=== PATIENT | female | born 2005 | race Caucasian/White ===

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

== ENCOUNTER 2024-03-02 11:49 | Inpatient (IN) | payer MEDICAID, OTHER ==
--- NOTE | 2024-03-02 12:22 | ED ---
Psych HPI - General Chief Complaint: Psychiatric Symptoms Stated Complaint: Mental Health Time Seen by Provider: 03/02/24 11:59 Source: patient, family, RN notes reviewed Mode of arrival: ambulatory Limitations: no limitations - History of Present Illness Initial Comments: This is a 18-year-old female who presents to the emergency department for psychiatric evaluation. Patient has problems with recurrent auditory and visual hallucinations. Her mom states that when she hallucinates she has 6 bad friends and 2 good friends. The bad friends tend to take over and tell her to do bad things and cause destructive behavior. The one bad friend she continues to mention is named "Donna". Usually, her family is able to get this under control at home, however over the last 2 days this has been escalating and things seem to be getting much worse. Her mom states that they are telling her to destroy things all over the house. They are concerned that they may start to tell her to harm herself or others, which has happened in the past. She is on multiple psychiatric medications through [facility] and has been hospitalized in the past at [facility]. She does also mention concerned about what the family believes is eczema. She has scattered erythematous lesions on her extremities and trunk. Describes these as very itchy. She tried using her mother's triamcinolone cream without much relief. - Related Data Home Medications Medication Instructions Recorded Confirmed Melatonin 3 mg PO HS PRN 02/16/19 03/02/24 FLUoxetine HCL [PROzac] 10 mg PO DAILY 01/23/22 03/02/24 cloNIDine HCL 0.2 mg PO HS 01/23/22 03/02/24 diphenhydrAMINE HCL [Benadryl] 25 mg PO DAILY PRN 01/23/22 03/02/24 hydrOXYzine pamoate [Vistaril] 25 mg PO BID 01/23/22 03/02/24 Multivitamin [Multivitamins Adult 1 tab PO DAILY 03/02/24 03/02/24 Gummies] OLANZapine [ZyPREXA] 5 mg PO HS 03/02/24 03/02/24 risperiDONE [RisperDAL] 2 mg PO BID 03/02/24 03/02/24 Previous Rx's Medication Instructions Recorded EPINEPHrine [Epipen 2-Km] 0.3 mg IM ONCE PRN #1 pack 02/17/19 Allergies Allergy/AdvReac Type Severity Reaction Status Date / Time dog dander Allergy Unknown-Allergy Verified 03/02/24 18:13 testing feathers Allergy Unknown-Allergy Verified 03/02/24 18:13 testing permethrin [From Nix] Allergy Rash/Hives Verified 03/02/24 18:12 red (food color) Allergy Nausea & Verified 03/02/24 18:12 Vomiting shrimp Allergy Unknown-Allergy Verified 03/02/24 18:13 testing tree nut Allergy Anaphylaxis Verified 03/02/24 18:12 hamster Allergy Unknown-Allergy Uncoded 03/02/24 18:13 testing Review of Systems ROS Statement: Those systems with pertinent positive or pertinent negative responses have been documented in the HPI. ROS Other: All systems not noted in ROS Statement are negative. Past Medical History Past Medical History: Asthma Additional Past Medical History / Comment(s): autisum, odd History of Any Multi-Drug Resistant Organisms: None Reported Past Surgical History: No Surgical Hx Reported Past Psychological History: ADD/ADHD, Anxiety Smoking Status: Never smoker Past Alcohol Use History: None Reported Past Drug Use History: None Reported General Exam Limitations: no limitations General appearance: alert, in no apparent distress Head exam: Present: atraumatic, normocephalic, normal inspection Respiratory exam: Present: normal lung sounds bilaterally. Absent: respiratory distress, wheezes, rales, rhonchi, stridor Cardiovascular Exam: Present: regular rate, normal rhythm, normal heart sounds. Absent: systolic murmur, diastolic murmur, rubs, gallop, clicks Neurological exam: Present: alert, oriented X3, CN II-XII intact Psychiatric exam: Present: normal affect, normal mood. Absent: homicidal ideation, suicidal ideation Expanded Focused psych exam: Present: delusional Skin exam: Present: other (Scattered erythematous scaly lesions on the bilateral upper and lower extremities and the back of her neck) Course Vital Signs 03/02/24 11:55 Temperature 98.1 F Pulse Rate 63 Respiratory 18 Rate Blood Pressure 121/75 O2 Sat by Pulse 98 Oximetry Medical Decision Making - Medical Decision Making This is a 18 year old female who presents to the emergency department for psychiatric evaluation. Was pt. sent in by a medical professional or institution? @ -No Did you speak to anyone other than the patient for history? @ -Her mother supplemented a lot of the history. Did you review nursing and triage notes? @ -Yes, and I agree, it is accurate with regards to the patient's symptoms. Were old charts reviewed? @ -No Differential Diagnosis? @ -Differential Mental Health: Depression, anxiety, bipolar, psychosis, schizophrenia, borderline personality, situational depression, adjustment disorder, behavioral disorder, brain tumor, malingering, substance abuse, encephalopathy, medication reaction, dementia, hypothyroidism, degenerative neurologic disorder, lupus.... This is not meant to be all-inclusive list EKG interpreted by me (3pts min.)? @ -Not obtained X-rays interpreted by me (1pt min.)? @ -Not obtained CT interpreted by me (1pt min.)? @ -Not obtained U/S interpreted by me (1pt. min.)? @ -Not obtained What testing was considered but not performed? (CT, X-rays, U/S, labs)? Why? @ -None What meds were considered but not given? Why? @ -None Did you discuss the management of the patient with other professionals? @ -Yes, Ana with EPS, who advised that she does meet criteria for inpatient psychiatric hospitalization due to worsening psychosis and will sign herself in voluntarily. Did you reconcile home meds? @ -No Was smoking cessation discussed for >3mins.? @ -No Was critical care preformed (if so, how long)? @ -No Were there social determinants of health that impacted care today? How? (Homelessness, low income, unemployed, alcoholism, drug addiction, transportation, low edu. Level, literacy, decrease access to med. care, [facility], rehab)? @ -No Was there de-escalation of care discussed even if they declined? (Discuss DNR or withdrawal of care, Hospice)? @ -No What co-morbidities impacted this encounter? (DM, HTN, Smoking, COPD, CAD, Cancer, CVA, Hep., AIDS, mental health diagnosis, sleep apnea, morbid obesity)? @ -Autism, ODD Was patient admitted / discharged? @ -Admitted. BAT was 0.0 and she was cleared for EPS evaluation. Urinalysis negative for signs of infection. Urine drug screen negative. She does have multiple scattered erythematous scaling lesions on her bilateral upper and lower extremities as well as her trunk. Some of these look eczematous and others almost appear similar to ringworm based on the darker border with [facility]. Lotrisone cream was applied to these in the meantime, which did effectively treat the itching. EPS evaluated the patient and advised that she does meet criteria for inpatient psychiatric hospitalization due to worsening psychosis. Patient signed herself in voluntarily and will be admitted to [facility] for further care. Case discussed with ED attending Dr. Kim. Undiagnosed new problem with uncertain prognosis? @ -None Drug Therapy requiring intensive monitoring for toxicity (Heparin, Nitro, Insulin, Cardizem)? @ -None Were any procedures done? @ -None Diagnosis/symptom? @ -Acute psychosis Acute, or Chronic, or Acute on Chronic? @ -Acute Uncomplicated (without systemic symptoms) or Complicated (systemic symptoms)? @ -Complicated Side effects of treatment? @ -None Exacerbation, Progression, or Severe Exacerbation] @ -Not applicable Poses a threat to life or bodily function? @ -Yes, can lead to potentially life threatening behavior - Lab Data Lab Results 03/02/24 03/02/24 03/02/24 Range/Units 12:36 12:36 18:07 Urine Color Colorless Urine Appearance Clear (Clear) Urine pH 6.5 (5.0-8.0) Ur Specific Bandy 1.001 (1.001-1.035) Urine Protein Negative (Negative) Urine Glucose (UA) Negative (Negative) Urine Ketones Negative (Negative) Urine Blood Negative (Negative) Urine Nitrite Negative (Negative) Urine Bilirubin Negative (Negative) Urine Urobilinogen <2.0 (<2.0) mg/dL Ur Leukocyte Esterase Negative (Negative) Urine HCG, Qual Not Detected (Not Detectd) Urine Opiates Screen Not Detected (NotDetected) Ur Oxycodone Screen Not Detected (NotDetected) Urine Methadone Screen Not Detected (NotDetected) Ur Barbiturates Screen Not Detected (NotDetected) U Tricyclic Antidepress Not Detected (NotDetected) Ur Phencyclidine Scrn Not Detected (NotDetected) Ur Amphetamines Screen Not Detected (NotDetected) U Methamphetamines Scrn Not Detected (NotDetected) U Benzodiazepines Scrn Not Detected (NotDetected) Urine Cocaine Screen Not Detected (NotDetected) U Marijuana (THC) Screen Not Detected (NotDetected) SARS-CoV-2 (PCR) Not Detected (Not Detectd) Disposition Clinical Impression: Acute psychosis Disposition: TRANSFER TO PSYCH HOSP/UNIT Referrals: Abiodun Solitario MD [Primary Care Provider] - 1-2 days
[2024-03-02] MEDS: CLOTRIMAZOLE/BETAMETH 1-0.05% CREAM 45 GM TUBE TOPICAL STA (12:36)
[2024-03-02 13:05] LABS: Appearance,Urine Clear (Clear); Bilirubin,Urine Negative (Negative); Blood,Urine Negative (Negative); Color,Urine Colorless; Glucose,Urine (UA) Negative (Negative); Ketones,Urine Negative (Negative); Leukocyte Esterase,Urine Negative (Negative); Nitrite,Urine Negative (Negative); PH, Urine 6.5 (5.0-8.0); Protein,Urine Negative (Negative); Specific Gravity,Urine 1.001 (1.001-1.035); Urobilinogen,Urine <2.0 mg/dL (<2.0)
[2024-03-02 13:32] LABS: Amphetamine Screen,Urine Not Detected (NotDetected); Barbiturate Screen,Urine Not Detected (NotDetected); Benzodiazepines Screen,Urine Not Detected (NotDetected); Cocaine Screen,Urine Not Detected (NotDetected); Methadone Screen, Urine Not Detected (NotDetected); Opiate Screen,Urine Not Detected (NotDetected); Oxycodone Screen, Urine Not Detected (NotDetected); Phencyclidine Screen,Urine Not Detected (NotDetected); Tricyclic Antidepressant,Urine Not Detected (NotDetected); Urn Cannabinoid Scrn Not Detected (NotDetected)
[2024-03-02] MEDS ORDERED: IBUPROFEN 600 MG TAB PO PRN (22:02)
[2024-03-02] MEDS ORDERED: ACETAMINOPHEN TAB 325 MG TAB PO PRN (22:02)
[2024-03-02] MEDS ORDERED: MAG HYDROX/AL HYDROX/SIMETH 355 ML BOTTLE PO PRN (22:02)
[2024-03-02] MEDS ORDERED: MAGNESIUM HYDROXIDE 2,400 MG/30 ML CUP PO PRN (22:02)
[2024-03-02] MEDS ORDERED: haloperidoL 5 MG TAB PO PRN (22:06)
[2024-03-02] MEDS ORDERED: LORazepam 1 MG TAB PO PRN (22:06)
[2024-03-02] MEDS ORDERED: HALOPERIDOL LACTATE 5 MG/ML 1 ML VIAL IM PRN (22:06)
[2024-03-02] MEDS ORDERED: LORazepam 2 MG/ML INJ IM PRN (22:06)
[2024-03-03] MEDS: hydrOXYzine pamoate 25 MG CAP PO SCH (00:02)
[2024-03-03] MEDS: MELATONIN 3 MG TABLET PO PRN (00:02)
[2024-03-03] MEDS: cloNIDine HCL 0.2 MG TAB PO SCH (00:02)
[2024-03-03] MEDS: OLANZapine 5 MG TAB PO SCH (00:02)
[2024-03-03] MEDS: FLUoxetine HCL 10 MG CAP PO SCH (08:34)
[2024-03-03 10:31] LABS: Basophils % (A) 1 %; Eosinophils # (A) 0.1 k/uL (0-0.7); Eosinophils % (A) 1 %; HCT 42.4 % (34.0-46.0); HGB 13.4 gm/dL (11.4-16.0); Lymphocytes # (A) 1.7 k/uL (1.0-4.8); Lymphocytes % (A) 33 %; MCH 27.8 pg (25.0-35.0); MCHC 31.5 g/dL (31.0-37.0); MCV 88.3 fL (80.0-100.0); Mean Platelet Volume 7.2; Monocytes # (A) 0.3 k/uL (0-1.0); Monocytes % (A) 6 %; Neutrophils # (A) 2.9 k/uL (1.3-7.7); Neutrophils % (A) 58 %; Platelet Count 322 k/uL (150-450); RDW 14.9 % (11.5-15.5)
[2024-03-03 10:51] LABS: ALT 21 U/L (4-34); AST 26 U/L (14-36); African American GFR (CKD) >90 (>60 ml/min/1.73 sqM); Albumin 4.8 g/dL (3.5-5.0); Alkaline Phosphatase 107 U/L (38-126); Anion Gap 7 mmol/L; Bilirubin, Delta 0.1 mg/dL (0.0-0.2); Bilirubin,Unconjugated 0.5 mg/dL (0.0-1.1); Blood Urea Nitrogen 9 mg/dL (7-17); Calcium 10.1 mg/dL (8.4-10.2); Carbon Dioxide 21 mmol/L (22-30); Chloride 111 mmol/L (98-107); Glucose 85 mg/dL (74-99); Non-African American GFR(CKD) >90 (>60 ml/min/1.73 sqM); Potassium 4.2 mmol/L (3.5-5.1); Sodium 139 mmol/L (137-145); Total Bilirubin 0.6 mg/dL (0.2-1.3); Total Protein 7.8 g/dL (6.3-8.2)
[2024-03-03] MEDS ORDERED: hydrOXYzine pamoate 25 MG CAP PO PRN (14:29)
[2024-03-03] MEDS: SERTRALINE 50 MG TAB PO SCH (14:30)
--- NOTE | 2024-03-03 14:31 | P.HP ---
Psychiatric H&P - . H&P Date: 03/03/24 History & Physical: Allergies Allergy/AdvReac Type Severity Reaction Status Date / Time dog dander Allergy Unknown-Allergy Verified 03/03/24 00:26 testing feathers Allergy Unknown-Allergy Verified 03/03/24 00:26 testing permethrin from [facility]ix Allergy Rash/Hives Verified 03/03/24 00:26 red (food color) Allergy Nausea & Verified 03/03/24 00:26 Vomiting shrimp Allergy Unknown-Allergy Verified 03/03/24 00:26 testing tree nut Allergy Anaphylaxis Verified 03/03/24 00:26 hamster Allergy Unknown-Allergy Uncoded 03/03/24 00:26 testing Vital Signs Temp 98.2 F 03/03/24 05:58 Pulse 56 L 03/03/24 05:58 Resp 15 03/03/24 05:58 BP 116/70 03/03/24 05:58 Pulse Ox 97 03/03/24 05:58 FiO2 Intake & Output 03/02/24 03/03/24 03/03/24 18:59 06:59 18:59 Weight 74.843 kg 74.096 kg Laboratory Last Values Urine Color Colorless 03/02/24 12:36 Urine Appearance Clear (Clear) 03/02/24 12:36 Urine pH 6.5 (5.0-8.0) 03/02/24 12:36 Ur Specific [place] 1.001 (1.001-1.035) 03/02/24 12:36 Urine Protein Negative (Negative) 03/02/24 12:36 Urine Glucose (UA) Negative (Negative) 03/02/24 12:36 Urine Ketones Negative (Negative) 03/02/24 12:36 Urine Blood Negative (Negative) 03/02/24 12:36 Urine Nitrite Negative (Negative) 03/02/24 12:36 Urine Bilirubin Negative (Negative) 03/02/24 12:36 Urine Urobilinogen <2.0 mg/dL (<2.0) 03/02/24 12:36 Ur Leukocyte Esterase Negative (Negative) 03/02/24 12:36 Urine HCG, Qual Not Detected (Not Detectd) 03/02/24 12:36 Urine Opiates Screen Not Detected (NotDetected) 03/02/24 12:36 Ur Oxycodone Screen Not Detected (NotDetected) 03/02/24 12:36 Urine Methadone Screen Not Detected (NotDetected) 03/02/24 12:36 Ur Barbiturates Screen Not Detected (NotDetected) 03/02/24 12:36 U Tricyclic Antidepress Not Detected (NotDetected) 03/02/24 12:36 Ur Phencyclidine Scrn Not Detected (NotDetected) 03/02/24 12:36 Ur Amphetamines Screen Not Detected (NotDetected) 03/02/24 12:36 U Methamphetamines Scrn Not Detected (NotDetected) 03/02/24 12:36 U Benzodiazepines Scrn Not Detected (NotDetected) 03/02/24 12:36 Urine Cocaine Screen Not Detected (NotDetected) 03/02/24 12:36 U Marijuana (THC) Screen Not Detected (NotDetected) 03/02/24 12:36 SARS-CoV-2 (PCR) Not Detected (Not Detectd) 03/02/24 18:07 03/03/24 08:51 IDENTIFYING DATA: Patient is a 18 year old female. Currently lives with her mom who is her guardian, she lives in a trailer, she collects SSI. HPI: Patient presented to the hospital on 03/02. As per EPS note, "Patient presented to ED with mother for evaluation related to "seeing people and 'marin' telling her to hurt herself". Patient assessed from [id number]. Patient evaluated with mother at the bedside, with permisson to speak infront of mother. Patient states that she has 6 bad and 2 good imaginary friends and "marin" started telling her to hurt herself. Patient states that each of her friends have names and they are not always there at the same time. Patient has bruise to R arm where she hit herself. Patient states she has history of self harm including biting and hitting herself and occasionally biting herself. Patient and mother deny recent history of patient harming others or aggression towards others. Patients mother stated that appox 4 years ago patient began self harming after being told to by the imaginary friend and it escalated to harming others including hitting others and throwing objects. Patients mother expressed concern that without treatment patient will escalate to begin harming herself worse or harming others. Patient denies suicidal or homicidal ideations. Patient denies paranoia, and no delusional statements noted on assessment. Patient verbalizes taking medications at home as prescribed. Patient verbalizes recent appetite decrease with eating 0-1 meal a day and some snacks, difficulty sleeping approx 2 hours per night, and difficulty maintaining hygiene. Patient states these recent changes started 3 days ago. Patient and mother state at baseline patient does not harm herself and has no difficulty with her ADLs. Patient denies substance use, UDS-. Patient denies alcohol use, BAT 0. Patient denies legal hx. Patient and mother deny any guns or weapons in the home, stating "even the kitchen utensils are locked away". Upon today's assessment, patient was seen and agreeable to speak to information writer in the office today. She claims that she was having auditory hallucinations claiming the voices were telling her to harm herself, also states that she is seeing things having visual hallucinations of "imaginary people". Claims that she was also having flashbacks, states that she has been hitting herself as well. Claims that she has a long history of doing this however this has gotten worse. States that she has been feeling "more stressed out". When asked more about the stressors she listed off her grandmother being a stressor for her, states that her boyfriend also is going away to college, states that she is also dealing with other family issues. She states that her appetite has been poor, sleep has been poor about 2 to 3 hours a night, denying any paranoia at this time. States that she is compliant with her medications her mom helps her take it. She goes to [facility] for regular follow-up. Patient denies any suicidal or homicidal ideations intent or plan. At this time patient is continuing to admit to auditory or visual hallucinations. Patient denies any flight of ideas racing thoughts and increased in goal directed behavior. Patient admits to using no recreational drugs or cigarettes. PAST PSYCHIATRIC HISTORY: Patient states that she is open with [facility] sees FIRE PROTECTION SPECIALIST Kenyatta Contreras. Last hospitalization was 1 year ago at [facility]. . She is currently on Zyprexa, clonidine, Vistaril, Risperdal, Prozac . Patient denies any history of suicide attempts in the past. PMH:As per ER note ALLERGIES: as per EMR CHEMICAL DEPENDENCY HISTORY: as per HPI FAMILY PSYCHIATRIC/SUBSTANCE USE HISTORY: Claims that her brother has autism, her mom has some form of mental illness. States that she has a sister who apparently has schizophrenia. SOCIAL HISTORY: Patient was born and raised in [place] in [facility]. Claims that she currently lives in a trailer with her mom, claims that her mother is a guardian. She claims that she collects SSI. She graduated high school recently, denies any legal history. MENTAL STATUS EXAM: General Appearance: Patient appears to be wearing hospital gown, wearing glasses, stated age is alert, directable, and attempts to cooperate. Patient appears to have poor hygiene and grooming. Behavior: Patient is seated without any agitated behavior. Attempts to cooperate Speech: Patient's speech is fluent and nonpressured. [place] Mood/Affect: Patient reports their mood is depressed, affect is congruent and constricted. Suicidality/Homicidality: Patient denies having any homicidal ideation intent or plan. Denies any suicidal ideations intent or plan Perceptions: Patient denies any visual hallucinations and denies any auditory hallucinations Though content/process: There is no evidence of any delusional thought content and thought process is linear and goal-directed. [place], Memory and concentration: AOX3, grossly intact for the purposes of this session. Can spell "WORLD" backwards Judgment and insight: Poor, chronically limited STRENGTHS/WEAKNESSES: strength is that patient is resilient. Weakness is that patient has poor judgment and chronically limited insight INTELLECT: Below average IMPRESSIONS: Psychosis unspecified Intellectual disability mild PLAN: -Patient is admitted under voluntary status to MHU for stabilization of psychiatric symptoms and safety. Patient has signed adult voluntary form and m edication consent and is placed in patient's chart. -Medications : Will start patient on Zoloft 50 mg daily for mood/anxiety, Invega p.o. 3 mg twice daily for psychosis/mood stabilization, trazodone 50 mg nightly for sleep/mood, clonidine 0.2 mg nightly for impulsivity, vistaril 25 mg q6hr prn for anxiety. -Ativan and Haldol PRN for agitation/aggression -Patient was informed of the risks, benefits and side effects of the medication and patient verbally consented to taking the medications. -Internal Medicine consult to perform medical evaluation and physical. -NRT - not needed as patient does not smoke -SW on board for discharge planning. Encourage patient to participate in groups to work on coping skills. 03/03/24 14:23 03/03/24 14:30
[2024-03-03 15:37] LABS: Chol/HDL Ratio 4.67 Ratio; LDL Cholesterol,Calculated 145.9 mg/dL (0.0-131.0)
[2024-03-03] MEDS: traZODone HCL 50 MG TAB PO SCH (20:08)
[2024-03-03] MEDS: CLOTRIMAZOLE/BETAMETH 1-0.05% CREAM 45 GM TUBE TOPICAL SCH (20:08)
[2024-03-03] MEDS: PALIPERIDONE 3 MG TAB.ER.24 PO SCH (20:08)
--- NOTE | 2024-03-04 04:41 | P.CONS ---
History of Present Illness - Reason for Consult Consult date: 03/04/24 - History of Present Illness The patient is a 18-year-old female with a PMH of psychiatric illnesses who was brought into the emergency room for visual and auditory hallucination. The patient was admitted to the mental health unit where she was seen and evaluated. The patient's only complaint at the time of interview was a diffuse rash that had been improving over the past several days. He denied any additional compl aints. Denied experiencing chest discomfort, shortness breath, fever, chills, cough, nausea, vomiting, abdominal pain, diarrhea. She denied illicit substance, alcohol, or tobacco use. Review of systems: Pertinent positives and negatives as discussed in HPI, a complete review of systems was performed and all other systems are negative. Physical examination: General: non toxic, no distress, appears at stated age, normal weight Derm: Few erythematous lesions on her arms bilaterally and legs, no unusual ecchymoses, warm, dry Head: atraumatic, normocephalic, symmetric Eyes: EOMI, no lid lag, anicteric sclera ENT: Nose and ears atraumatic, no thrush, no pharyngeal erythema Neck: trachea midline, supple Mouth: no lip lesion, mucus membranes moist Cardiovascular: S1S2 reg, no murmur, no edema Lungs: CTA bilateral, no rhonchi, no rales , no accessory muscle use Abdominal: soft, nontender to palpation, no guarding Ext: no gross muscle atrophy, no contractures, Neuro: No gross focal neuro deficits noted Psych: Alert, oriented, appropriate affect Assessment: Mild diffuse rash, improving Psychosis Imaging: None performed Data Review: Reviewed with WBC count 5.0, hemoglobin 13.4, sodium 139, potassium 4.2, UA and urine toxicology unremarkable Plan: Continue to monitor rash Defer management of psychosis to primary psychiatry service Thank you for allowing us to participate in the care of this patient. We will follow peripherally. Do not hesitate to contact us with questions. Someone can be reached from the [facility] hospitalist group at all hours of the day at [phone]. Past Medical History Past Medical History: Asthma Additional Past Medical History / Comment(s): autisum, odd History of Any Multi-Drug Resistant Organisms: None Reported Past Surgical History: No Surgical Hx Reported Past Psychological History: ADD/ADHD, Anxiety Smoking Status: Never smoker Past Alcohol Use History: None Reported Past Drug Use History: None Reported - Past Family History Mother Family Medical History: Chest Pain / Angina Medications and Allergies Home Medications Medication Instructions Recorded Confirmed Type Melatonin 3 mg PO HS PRN 02/16/19 03/03/24 History EPINEPHrine [Epipen 2-Km] 0.3 mg IM ONCE PRN #1 pack 02/17/19 03/03/24 Rx FLUoxetine HCL [PROzac] 10 mg PO DAILY 01/23/22 03/03/24 History cloNIDine HCL 0.2 mg PO HS 01/23/22 03/03/24 History diphenhydrAMINE HCL [Benadryl] 25 mg PO DAILY PRN 01/23/22 03/03/24 History hydrOXYzine pamoate [Vistaril] 25 mg PO BID 01/23/22 03/03/24 History Multivitamin [Multivitamins Adult 1 tab PO DAILY 03/02/24 03/03/24 History Gummies] OLANZapine [ZyPREXA] 5 mg PO HS 03/02/24 03/03/24 History risperiDONE [RisperDAL] 2 mg PO BID 03/02/24 03/03/24 History Allergies Allergy/AdvReac Type Severity Reaction Status Date / Time dog dander Allergy Unknown-Allergy Verified 03/03/24 00:26 testing feathers Allergy Unknown-Allergy Verified 03/03/24 00:26 testing permethrin [From Nix] Allergy Rash/Hives Verified 03/03/24 00:26 red (food color) Allergy Nausea & Verified 03/03/24 00:26 Vomiting shrimp Allergy Unknown-Allergy Verified 03/03/24 00:26 testing tree nut Allergy Anaphylaxis Verified 03/03/24 00:26 hamster Allergy Unknown-Allergy Uncoded 03/03/24 00:26 testing Physical Exam Vitals: Vital Signs Temp Pulse Resp BP BP Pulse Ox 03/03/24 20:10 107/70 03/03/24 05:58 98.2 F 56 L 15 116/70 97 Results CBC & Chem 7: 03/03/24 09:57 03/03/24 09:57 Labs: Abnormal Lab Results - Last 24 Hours (Table) 03/03/24 Range/Units 09:57 Chloride 111 H (98-107) mmol/L Carbon Dioxide 21 L (22-30) mmol/L Cholesterol 216.00 H (0.00-200.00) mg/dL LDL Cholesterol, Calc 145.9 H (0.0-131.0) mg/dL
[2024-03-04 07:28] VITALS: TEMP 97.8
--- NOTE | 2024-03-04 12:02 | P.PN ---
Progress Note - Text Progress Note Date: 03/04/24 Interval History: Patient was seen [wandering the hallways] and was directable and agreeable to speak with copy writer in the office. She states that she is feeling really good today. He denies any anxiety or depression. She states that she is spending her time doing word searches out of a book. She states she slept well last night. She endorses a good appetite. She claims to have not heard AH since Sunday morning. She is attending groups. At this time patient denies any suicidal or homicidal ideations, intent or plan. Patient denies any auditory, visual hallucinations and denies any paranoia or delusions. Patient denies any side effects from the medications and has been compliant with meds. MENTAL STATUS EXAM: General Appearance: Patient appears to be wearing hospital gown, wearing glasses, stated age is alert, directable, and attempts to cooperate. Patient appears to have improving hygiene and grooming. Behavior: Patient is seated without any agitated behavior. Attempts to cooperate Speech: Patient's speech is fluent and nonpressured. [place], mildly improving Mood/Affect: Patient reports their mood is really good, affect is congruent and constricted. Suicidality/Homicidality: Patient denies having any homicidal ideation intent or plan. Denies any suicidal ideations intent or plan Perceptions: Patient denies any visual hallucinations and denies any auditory hallucinations Though content/process: There is no evidence of any delusional thought content and thought process is linear and goal-directed. [place], Memory and concentration: AOX3, grossly intact for the purposes of this session. Judgment and insight: Poor, chronically limited IMPRESSIONS: Psychosis unspecified Intellectual disability mild PLAN: -Patient is admitted under voluntary status to MHU for stabilization of psychiatric symptoms and safety. Patient has signed adult voluntary form and [facility] consent and is placed in patient's chart. -Medications : Zoloft 50 mg daily for mood/anxiety, Invega p.o. 3 mg twice daily for psychosis/mood stabilization, trazodone 50 mg nightly for sleep/mood, clonidine 0.2 mg nightly for impulsivity, vistaril 25 mg q6hr prn for anxiety. Add melatonin 6mg qhs for sleep -NRT - not needed as patient does not smoke -SW on board for discharge planning. Encourage patient to participate in groups to work on coping skills. Will speak to guardian regarding patient receiving a DISLA prior to discharge. hopeful for discharge sunday back home if patient is do ing well.
[2024-03-04] MEDS: MELATONIN 3 MG TABLET PO SCH (20:03)
[2024-03-05 08:19] VITALS: RESP 18
--- NOTE | 2024-03-05 10:07 | P.PN ---
Progress Note - Text Progress Note Date: 03/05/24 Interval History: Patient was seen in group and was directable and agreeable to speak with card writer hand in the office. She states that she is feeling good today. She is bright, and has a smile on her face. Metal Polisher And Buffer Apprentice spoke to patient about receiving a DISLA, and patient is agreeable. Metal Polisher And Buffer Apprentice will reach out to patients guardian to discuss this. Guardian agreeable. Patient states that she is sleeping well, and that she is endorsing a good appetite. She is attending groups. Patient is showering, and has improved hygiene and grooming. At this time patient denies any suicidal or homicidal ideations, intent or plan. Patient denies any auditory, visual hallucinations and denies any paranoia or delusions. Patient denies any side effects from the medications and has been compliant with meds. MENTAL STATUS EXAM: General Appearance: Patient appears to be wearing hospital gown, wearing glasses, stated age is alert, directable, and attempts to cooperate. Patient appears to have improving hygiene and grooming. Behavior: Patient is seated without any agitated behavior. Cooperative. Speech: Patient's speech is fluent and nonpressured. [place], mildly improving Mood/Affect: Patient reports their mood is really good, affect is congruent and constricted. Suicidality/Homicidality: Patient denies having any homicidal ideation intent or plan. Denies any suicidal ideations intent or plan Perceptions: Patient denies any visual hallucinations and denies any auditory hallucinations Though content/process: There is no evidence of any delusional thought content and thought process is linear and goal-directed. more future oriented. Memory and concentration: AOX3, grossly intact for the purposes of this session. Judgment and insight: chronically limited, improving IMPRESSIONS: Psychosis unspecified Intellectual disability mild PLAN: -Patient is admitted under voluntary status to MHU for stabilization of psychiatric symptoms and safety. Patient has signed adult voluntary form and medication consent and is placed in patient's chart. -Medications : Zoloft 50 mg daily for mood/anxiety, decrease Invega p.o. 3 mg QHS for psychosis/mood stabilization, trazodone 50 mg nightly for sleep/mood, clonidine 0.2 mg nightly for impulsivity, vistaril 25 mg q6hr prn for anxiety. melatonin 6mg qhs for sleep Add Invega Sust[place] 234mg IM today, next dose of 156 mg to be given on 03/12, then maintenance dose of 117mg 04/09. -NRT - not needed as patient does not smoke -SW on board for discharge planning. Encourage patient to participate in groups to work on coping skills. discharge tomorrow back home if patient is doing well.
[2024-03-05] MEDS: PALIPERIDONE IM 234 MG/1.5 ML SYG IM STA (11:52)
[2024-03-05] MEDS: PALIPERIDONE 3 MG TAB.ER.24 PO SCH (20:15)
[2024-03-06 07:00] VITALS: BP 96/61; PULSE 80
--- NOTE | 2024-03-06 09:52 | P.DS ---
Providers Date of admission: 03/02/24 21:58 Expected date of discharge: 03/06/24 Attending physician: Oscar Wolfe MD Consults: 03/02/24 22:02 Consult Physician Routine Consulting Provider: Rosalina Vargas Consult Reason/Comments: History and Physical Do you want consulting provider notified?: Yes Primary care physician: Abiodun Landerosudi - Discharge Diagnosis(es) (1) Unspecified psychosis Current Visit: Yes Status: Acute Priority: High (2) Mild intellectual disability Current Visit: Yes Status: Acute Priority: Medium Hospital Course: Admission HPI: Admission note was completed by administrative underwriter "Patient presented to the hospital on 03/02. As per EPS note, "Patient presented to ED with mother for evaluation related to "seeing people and 'marin' telling her to hurt herself". Patient assessed from [id number]. Patient evaluated with mother at the bedside, with permisson to speak infront of mother. Patient states that she has 6 bad and 2 good imaginary friends and "marin" started telling her to hurt herself. Patient states that each of her friends have names and they are not always there at the same time. Patient has bruise to R arm where she hit herself. Patient states she has history of self harm including biting and hitting herself and occasionally biting herself. Patient and mother deny recent history of patient harming others or aggression towards others. Patients mother stated that appox 4 years ago patient began self harming after being told to by the imaginary friend and it escalated to harming others including hitting others and throwing objects. P atients mother expressed concern that without treatment patient will escalate to begin harming herself worse or harming others. Patient denies suicidal or homicidal ideations. Patient denies paranoia, and no delusional statements noted on assessment. Patient verbalizes taking medications at home as prescribed. Patient verbalizes recent appetite decrease with eating 0-1 meal a day and some snacks, difficulty sleeping approx 2 hours per night, and difficulty maintaining hygiene. Patient states these recent changes started 3 days ago. Patient and mother state at baseline patient does not harm herself and has no difficulty with her ADLs. Patient denies substance use, UDS-. Patient denies alcohol use, BAT 0. Patient denies legal hx. Patient and mother deny any guns or weapons in the home, stating "even the kitchen utensils are locked away". Upon today's assessment, patient was seen and agreeable to speak to administrative underwriter in the office today. She claims that she was having auditory hallucinations claiming the voices were telling her to harm herself, also states that she is seeing things having visual hallucinations of "imaginary people". Claims that she was also having flashbacks, states that she has been hitting herself as well. Claims that she has a long history of doing this however this has gotten worse. States that she has been feeling "more stressed out". When asked more about the stressors she listed off her grandmother being a stressor for her, states that her boyfriend also is going away to college, states that she is also dealing with other family issues. She states that her appetite has been poor, sleep has been poor about 2 to 3 hours a night, denying any paranoia at this time. States that she is compliant with her medications her mom helps her take it. She goes to [facility] for regular follow-up. Patient denies any suicidal or homicidal ideations intent or plan. At this time patient is continuing to admit to auditory or visual hallucinations. Patient denies any flight of ideas racing thoughts and increased in goal directed behavior. Patient admits to using no recreational drugs or cigarettes." Hospital course: Upon admission to the unit patient was directable and agreeable to commence treatment and signed adult voluntary form. Patient got along well with other patients on the unit and followed unit protocol. Patient was compliant with the medications and denied any side effects throughout hospital course. Patient was started on Zoloft 50 mg daily for mood/anxiety, Invega p.o. 3 mg twice daily decreased down to a dose of 3 mg nightly for psychosis/mood stabilization. Patient and her mother/guardian both were agreeable to have patient transition onto long-acting injection to help ensure compliance. Patient was given Invega Sustenna 234 mg IM on 03/05, second dose of 156 mg IM will be due on 03/12 at [facility] and maintenance dose of 117 mg IM will be next due on 04/09 at [facility]. Trazodone 50 mg nightly for sleep/mood, continued with home dose of clonidine 0.2 mg nightly for impulsivity/sleep, Vistaril as needed for anxiety, melatonin 6 mg nightly for sleep. Patient spoke of her stressors and engaged in therapy both group and individual. Patient was also seen by medical team for history and physical exam. Throughout the course of the hospitalization patient gradually improved with regards to mood, anxiety, hallucinations, psychosis, sleep and became more future oriented with improved insight and judgment. On the day of discharge patient denied any suicidal or homicidal ideations intent or plan denied any auditory or visual hallucinations. Patient endorsed wanting to live for her health and family. The patient denied any access to guns or weapons. Patient denied any paranoia and did not endorse any delusions. Patient does not have a significant history of substance abuse and was counseled on abstaining from all substances including alcohol and marijuana. Patient was also counseled on the medications and need for regular compliance and was encouraged to follow-up with their outpatient appointment for mental health and also for primary care. Prior to discharge a family meeting will be arranged by foster care social worker to answer any questions and ensure safety upon discharge. Corset Maker also spoke with patient's mother over the phone to discuss discharge planning, diagnosis, treatment and planning. Mental status exam: General Appearance: Patient appears to be wearing glasses, stated age is alert, pleasant, and cooperative. Patient is in no acute distress and has improved hygiene and grooming Behavior: Patient is calmly seated without any agitated behavior. Speech: Patient's speech is fluent and nonpressured. Mood/Affect: Patient reports their mood is "good", affect is congruent and euthymic. Suicidality/Homicidality: Patient denies having any suicidal or homicidal ideation intent or plan. Perceptions: Patient denies any auditory or visual hallucinations. Though content/process: There is no evidence of any delusional thought content and thought process is linear and goal-directed. More future oriented Memory and concentration: AOX3, grossly intact for the purposes of this session. Can spell "WORLD" backwards correctly. Judgment and insight: Chronically limited, improved with guarded prognosis Impression: Psychosis unspecified Intellectual disability mild Plan: -Continue with discharge today as patient has improved and stabilized psychiatrically and is not currently an imminent threat to herself and/or others. -Continue medications: Zoloft 50 mg daily for mood/anxiety, continue with decreased dose of Invega p.o. 3 mg nightly for psychosis/mood stabilization for 3 more days then discontinue. Patient was given Invega Sustenna 234 mg IM on 03/05, second dose of 156 mg IM will be due on 03/12 at [facility], maintenance dose will be due on 04/09 at [facility] of 117 mg IM. -Patient was counseled on the need for medication compliance and appropriate follow-up at mental health and also primary care for medical issues. Patient verbalized understanding and agreed. -Social work to arrange for and conduct family meeting to ensure safety upon discharge and answer any questions/concerns. Social work also to arrange for patients follow up appointments with [facility] for psychiatric care along with follow up with primary care provider. -Patient counseled on abstaining from recreational drugs and marijuana and alcohol. Was informed/educated on the adverse effects on their physical and mental health. Patient verbally agreed and understood. -Patient was instructed to return to the hospital or seek immediate medical care if their psychiatric or medical symptoms do worsen or reoccur. Allergies Allergy/AdvReac Type Severity Reaction Status Date / Time dog dander Allergy Unknown-Allergy Verified 03/03/24 00:26 testing feathers Allergy Unknown-Allergy Verified 03/03/24 00:26 testing permethrin from [employer] Allergy Rash/Hives Verified 03/03/24 00:26 red (food color) Allergy Nausea & Verified 03/03/24 00:26 Vomiting shrimp Allergy Unknown-Allergy Verified 03/03/24 00:26 testing tree nut Allergy Anaphylaxis Verified 03/03/24 00:26 hamster Allergy Unknown-Allergy Uncoded 03/03/24 00:26 testing Laboratory Results WBC 5.0 k/uL (4.0-11.0) 03/03/24 09:57 RBC 4.80 m/uL (3.80-5.40) 03/03/24 09:57 Hgb 13.4 gm/dL (11.4-16.0) 03/03/24 09:57 Hct 42.4 % (34.0-46.0) 03/03/24 09:57 MCV 88.3 fL (80.0-100.0) 03/03/24 09:57 MCH 27.8 pg (25.0-35.0) 03/03/24 09:57 MCHC 31.5 g/dL (31.0-37.0) 03/03/24 09:57 RDW 14.9 % (11.5-15.5) 03/03/24 09:57 Plt Count 322 k/uL (150-450) 03/03/24 09:57 MPV 7.2 03/03/24 09:57 Neutrophils % 58 % 03/03/24 09:57 Lymphocytes % 33 % 03/03/24 09:57 Monocytes % 6 % 03/03/24 09:57 Eosinophils % 1 % 03/03/24 09:57 Basophils % 1 % 03/03/24 09:57 Neutrophils # 2.9 k/uL (1.3-7.7) 03/03/24 09:57 Lymphocytes # 1.7 k/uL (1.0-4.8) 03/03/24 09:57 Monocytes # 0.3 k/uL (0-1.0) 03/03/24 09:57 Eosinophils # 0.1 k/uL (0-0.7) 03/03/24 09:57 Basophils # 0.0 k/uL (0-0.2) 03/03/24 09:57 Sodium 139 mmol/L (137-145) 03/03/24 09:57 Potassium 4.2 mmol/L (3.5-5.1) 03/03/24 09:57 Chloride 111 mmol/L (98-107) H 03/03/24 09:57 Carbon Dioxide 21 mmol/L (22-30) L 03/03/24 09:57 Anion Gap 7 mmol/L 03/03/24 09:57 BUN 9 mg/dL (7-17) 03/03/24 09:57 Creatinine 0.65 mg/dL (0.52-1.04) 03/03/24 09:57 Est GFR (CKD-EPI)AfAm >90 (>60 ml/min/1.73 sqM) 03/03/24 09:57 Est GFR (CKD-EPI)NonAf >90 (>60 ml/min/1.73 sqM) 03/03/24 09:57 Glucose 85 mg/dL (74-99) 03/03/24 09:[address] Glu mg/dL 111 mg/dL 03/03/24 09:57 Hemoglobin A1c 5.5 % (<=6.0) 03/03/24 09:57 Calcium 10.1 mg/dL (8.4-10.2) 03/03/24 09:57 Total Bilirubin 0.6 mg/dL (0.2-1.3) 03/03/24 09:57 Conjugated Bilirubin 0.0 mg/dL (0.0-0.3) 03/03/24 09:57 Unconjugated Bilirubin 0.5 mg/dL (0.0-1.1) 03/03/24 09:57 Delta Bilirubin 0.1 mg/dL (0.0-0.2) 03/03/24 09:57 AST 26 U/L (14-36) 03/03/24 09:57 ALT 21 U/L (4-34) 03/03/24 09:57 Alkaline Phosphatase 107 U/L (38-126) 03/03/24 09:57 Total Protein 7.8 g/dL (6.3-8.2) 03/03/24 09:57 Albumin 4.8 g/dL (3.5-5.0) 03/03/24 09:57 Triglycerides 119.00 mg/dL (0.00-149.00) 03/03/24 09:57 Cholesterol 216.00 mg/dL (0.00-200.00) H 03/03/24 09:57 LDL Cholesterol, Calc 145.9 mg/dL (0.0-131.0) H 03/03/24 09:57 VLDL Cholesterol, Calc 23.80 mg/dL (5.00-40.00) 03/03/24 09:57 HDL Cholesterol 46.30 mg/dL (40.00-60.00) 03/03/24 09:57 Cholesterol/HDL Ratio 4.67 Ratio 03/03/24 09:57 TSH 4.020 mIU/L (0.465-4.680) 03/03/24 09:57 Urine Color Colorless 03/02/24 12:36 Urine Appearance Clear (Clear) 03/02/24 12:36 Urine pH 6.5 (5.0-8.0) 03/02/24 12:36 Ur Specific [place] 1.001 (1.001-1.035) 03/02/24 12:36 Urine Protein Negative (Negative) 03/02/24 12:36 Urine Glucose (UA) Negative (Negative) 03/02/24 12:36 Urine Ketones Negative (Negative) 03/02/24 12:36 Urine Blood Negative (Negative) 03/02/24 12:36 Urine Nitrite Negative (Negative) 03/02/24 12:36 Urine Bilirubin Negative (Negative) 03/02/24 12:36 Urine Urobilinogen <2.0 mg/dL (<2.0) 03/02/24 12:36 Ur Leukocyte Esterase Negative (Negative) 03/02/24 12:36 Urine HCG, Qual Not Detected (Not Detectd) 03/02/24 12:36 Urine Opiates Screen Not Detected (NotDetected) 03/02/24 12:36 Ur Oxycodone Screen Not Detected (NotDetected) 03/02/24 12:36 Urine Methadone Screen Not Detected (NotDetected) 03/02/24 12:36 Ur Barbiturates Screen Not Detected (NotDetected) 03/02/24 12:36 U Tricyclic Antidepress Not Detected (NotDetected) 03/02/24 12:36 Ur Phencyclidine Scrn Not Detected (NotDetected) 03/02/24 12:36 Ur Amphetamines Screen Not Detected (NotDetected) 03/02/24 12:36 U Methamphetamines Scrn Not Detected (NotDetected) 03/02/24 12:36 U Benzodiazepines Scrn Not Detected (NotDetected) 03/02/24 12:36 Urine Cocaine Screen Not Detected (NotDetected) 03/02/24 12:36 U Marijuana (THC) Screen Not Detected (NotDetected) 03/02/24 12:36 SARS-CoV-2 (PCR) Not Detected (Not Detectd) 03/02/24 18:07 Vital Signs Temp 97.8 F 03/04/24 06:52 Pulse 80 03/06/24 07:00 Resp 18 03/05/24 08:19 BP 96/61 03/06/24 07:00 Pulse Ox 98 03/04/24 06:52 FiO2 Patient Condition at Discharge: Stable Plan - Discharge Summary New Discharge Prescriptions: New cloNIDine HCL [Catapres] 0.2 mg PO HS 30 Days #30 tab traZODone HCL [Desyrel] 50 mg PO HS 30 Days #30 tab Clotrimazole/Betameth Cream [Lotrisone] 1 applic TOPICAL BID 30 Days #1 each Paliperidone IM [Invega Sustenna] 156 mg IM ONCE #1 ml Paliperidone [Invega] 3 mg PO HS #3 tab Melatonin 6 mg PO HS 30 Days #60 tab hydrOXYzine pamoate [Vistaril] 25 mg PO DAILY PRN 30 Days #30 cap PRN Reason: Anxiety Sertraline [Zoloft] 50 mg PO DAILY 30 Days #30 tab Paliperidone Palmitate [Invega Sustenna] 117 mg IM QMONTHLY #1 each Continue EPINEPHrine [Epipen 2-Km] 0.3 mg IM ONCE PRN #1 pack PRN Reason: Anaphylaxis Multivitamin [Multivitamins Adult Gummies] 1 tab PO DAILY 30 Days #30 tab Discontinued Melatonin 3 mg PO HS PRN PRN Reason: Insomnia hydrOXYzine pamoate [Vistaril] 25 mg PO BID FLUoxetine HCL [PROzac] 10 mg PO DAILY risperiDONE [RisperDAL] 2 mg PO BID diphenhydrAMINE HCL [Benadryl] 25 mg PO DAILY PRN PRN Reason: Allergy Symptoms cloNIDine HCL 0.2 mg PO HS OLANZapine [ZyPREXA] 5 mg PO HS Discharge Medication List EPINEPHrine [Epipen 2-Km] 0.3 mg IM ONCE PRN #1 pack 02/17/19 [Rx] Clotrimazole/Betameth Cream [Lotrisone] 1 applic TOPICAL BID 30 Days #1 each 03/06/24 [Rx] Melatonin 6 mg PO HS 30 Days #60 tab 03/06/24 [Rx] Multivitamin [Multivitamins Adult Gummies] 1 tab PO DAILY 30 Days #30 tab 03/06/24 [Rx] Paliperidone IM [Invega Sustenna] 156 mg IM ONCE #1 ml 03/06/24 [Rx] Paliperidone Palmitate [Invega Sustenna] 117 mg IM QMONTHLY #1 each 03/06/24 [Rx] Paliperidone [Invega] 3 mg PO HS #3 tab 03/06/24 [Rx] Sertraline [Zoloft] 50 mg PO DAILY 30 Days #30 tab 03/06/24 [Rx] cloNIDine HCL [Catapres] 0.2 mg PO HS 30 Days #30 tab 03/06/24 [Rx] hydrOXYzine pamoate [Vistaril] 25 mg PO DAILY PRN 30 Days #30 cap 03/06/24 [Rx] traZODone HCL [Desyrel] 50 mg PO HS 30 Days #30 tab 03/06/24 [Rx] Follow up Appointment(s)/Referral(s): [facility] [Outside] - 03/07/24 3:00 pm (03/07/2024 3:00PM - 4:00PM NISHANT DUEÑAS 03/11/2024 1:30PM - 2:00PM DANITZA WEBSTER ) Abiodun Solitario MD [Primary Care Provider] - 1-2 days Discharge Disposition: HOME SELF-CARE
== END 2024-03-06 12:15 | disposition home or self-care (01) | DRG 751 ==
LOC: EC 11:49 → 3MHU 21:58
PROVIDERS: ADMIT Psychiatry & Neurology Psychiatry; ATTEND Psychiatry & Neurology Psychiatry
DX: F29 Unspecified psychosis not due to a substance or known physiological condition (principal); F70 Mild intellectual disabilities; S40.021A Contusion of right upper arm, initial encounter; G47.9 Sleep disorder, unspecified; R21 Rash and other nonspecific skin eruption; F84.0 Autistic disorder; Z91.52 Personal history of nonsuicidal self-harm; Z79.899 Other long term (current) drug therapy; Z81.8 Family history of other mental and behavioral disorders
CPT/HCPCS: 80053; 80061; 80306; 81003; 81025; 82075; 82248; 83036; 84443; 85025; 87635; 96360; 96361; 99285

== ENCOUNTER 2024-05-29 16:37 | Emergency (ER) | payer OTHER ==
--- NOTE | 2024-05-29 17:10 | XR ---
EXAMINATION TYPE: XR wrist complete LT DATE OF EXAM: 05/29/2024 5:07 PM COMPARISON: None. CLINICAL INDICATION: Female, 18 years old with history of left wrist in after punching car door, pain TECHNIQUE: XR wrist complete LT XX views were obtained. Additional navicular view obtained. FINDINGS: There is no acute fracture/dislocation evident. The joint spaces appear within normal limi ts. The overlying soft tissue appears unremarkable. IMPRESSION: No acute fracture or dislocation seen. [facility], , 05/29/2024 5:07 PM
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
[2024-05-29] MEDS: KETOROLAC 15 MG/ML 1 ML VIAL IVP STA (19:18)
[2024-05-29 19:42] LABS: Acetaminophen <10.0 ug/mL; Salicylate <1.0 mg/dL
[2024-05-29 19:47] LABS: Amphetamine Screen,Urine Not Detected (NotDetected); Barbiturate Screen,Urine Not Detected (NotDetected); Benzodiazepines Screen,Urine Not Detected (NotDetected); Cocaine Screen,Urine Not Detected (NotDetected); Methadone Screen, Urine Not Detected (NotDetected); Opiate Screen,Urine Not Detected (NotDetected); Oxycodone Screen, Urine Not Detected (NotDetected); Phencyclidine Screen,Urine Not Detected (NotDetected); Tricyclic Antidepressant,Urine Not Detected (NotDetected); Urn Cannabinoid Scrn Not Detected (NotDetected)
[2024-05-29 21:56] LABS: Basophils % (A) 1 %; Eosinophils # (A) 0.1 k/uL (0-0.7); Eosinophils % (A) 2 %; HCT 31.9 % (34.0-46.0); HGB 10.6 gm/dL (11.4-16.0); Lymphocytes # (A) 2.4 k/uL (1.0-4.8); Lymphocytes % (A) 38 %; MCH 30.2 pg (25.0-35.0); MCHC 33.2 g/dL (31.0-37.0); MCV 90.8 fL (80.0-100.0); Mean Platelet Volume 7.5; Monocytes # (A) 0.3 k/uL (0-1.0); Monocytes % (A) 6 %; Neutrophils # (A) 3.3 k/uL (1.3-7.7); Neutrophils % (A) 52 %; Platelet Count 194 k/uL (150-450); RBC 3.52 m/uL (3.80-5.40); RDW 14.4 % (11.5-15.5); WBC 6.3 k/uL (4.0-11.0)
[2024-05-29 22:00] LABS: ALT 43 U/L (4-34); AST 37 U/L (14-36); African American GFR (CKD) >90 (>60 ml/min/1.73 sqM); Albumin 4.4 g/dL (3.5-5.0); Alkaline Phosphatase 96 U/L (38-126); Anion Gap 8 mmol/L; Blood Urea Nitrogen 6 mg/dL (7-17); Calcium 9.7 mg/dL (8.4-10.2); Carbon Dioxide 24 mmol/L (22-30); Chloride 108 mmol/L (98-107); Glucose 91 mg/dL (74-99); Non-African American GFR(CKD) >90 (>60 ml/min/1.73 sqM); Potassium 3.6 mmol/L (3.5-5.1); Sodium 140 mmol/L (137-145); Total Bilirubin 0.2 mg/dL (0.2-1.3); Total Protein 7.2 g/dL (6.3-8.2)
[2024-05-30 11:20] VITALS: BP 125/74; PULSE 55; RESP 18; TEMP 98
--- NOTE | 2024-06-09 16:42 | XR ---
EXAMINATION TYPE: XR hand complete 3 views LT DATE OF EXAM: 05/29/2024 5:07 PM, made available for review on 06/09/2024 COMPARISON: Wrist 05/29/2024 CLINICAL INDICATION: Female, 18 years old with history of PAIN, , FINDINGS: Joint spaces are maintained. No acute fracture, subluxation, or dislocation is seen. IMPRESSION: No acute osseous abnormality seen. [facility] Aaron Yusuf, , 06/09/2024 4:40 PM
== END 2024-05-30 11:10 ==
LOC: EC 16:37
DX: F60.9 Personality disorder, unspecified (principal); F25.9 Schizoaffective disorder, unspecified; F31.9 Bipolar disorder, unspecified; F91.3 Oppositional defiant disorder; F23 Brief psychotic disorder; Z91.013 Allergy to seafood; Z91.018 Allergy to other foods; Z88.8 Allergy status to other drugs, medicaments and biological substances
CPT/HCPCS: 82075; 36415; 80053; 85025; 81025; 80306; 80143; 87636; 80179; 73110; 73130; 99285; 96374; J1885

== ENCOUNTER → 2024-09-30 | Outpatient (CLI) | payer OTHER ==
[2024-09-30 10:16] LABS: Basophils # (A) 0.04 X 10*3/uL (0.00-0.10); Basophils % (A) 0.9 %; Eosinophils # (A) 0.17 X 10*3/uL (0.04-0.35); Eosinophils % (A) 3.7 %; HCT 41.5 % (37.2-46.3); HGB 13.1 g/dL (12.0-15.0); Lymphocytes # (A) 1.33 X 10*3/uL (0.90-5.00); Lymphocytes % (A) 28.7 %; MCH 28.4 pg (27.0-32.0); MCHC 31.6 g/dL (32.0-37.0); Mean Platelet Volume 10.4 FL (9.5-12.2); Monocytes # (A) 0.61 X 10*3/uL (0.20-1.00); Monocytes % (A) 13.1 %; NRBC Per 100 WBC 0 X 10*3/uL (0.00-0.01); Neutrophils # (A) 2.48 X 10*3/uL (1.80-7.70); Neutrophils % (A) 53.4 %; Platelet Count 258 X 10*3/uL (140-440); RBC 4.61 X 10*6/uL (4.10-5.20); WBC 4.64 X 10*3/uL (4.50-10.00)
[2024-09-30 10:36] LABS: ALT 14 U/L (8-44); AST 20 U/L (13-35); Albumin 4.1 g/dL (3.8-4.9); Albumin/Globulin Ratio 1.78 Ratio (1.60-3.17); Alkaline Phosphatase 88 U/L (41-126); Bilirubin, Conjugated <0.20 mg/dL (0.20-0.40); Blood Urea Nitrogen 6.9 mg/dL (9.0-27.0); Chol/HDL Ratio 2.83 Ratio; Globulin 2.3 g/dL (1.6-3.3); Glucose 90 mg/dL (70-110); T4, Free (Free Thyroxine) 0.82 ng/dL (0.83-1.43); Total Bilirubin <0.2 mg/dL (0.3-1.2); Total Protein 6.4 g/dL (6.2-8.2); VLDL Calculation 12.56 mg/dL (5.00-40.00)
== END | disposition home or self-care (01) ==
LOC: LABWHC1 07:11
PROVIDERS: ATTEND Nurse Practitioner Family
DX: Z51.81 Encounter for therapeutic drug level monitoring (principal); Z79.899 Other long term (current) drug therapy
CPT/HCPCS: 36415; 80061; 80076; 80178; 82565; 82947; 83036; 84146; 84439; 84443; 84520; 85025